=== PATIENT | male | born 1970 | race Caucasian/White ===

== ENCOUNTER → 2016-09-08 | Outpatient (REF) | payer OTHER ==
[2016-09-09 12:38] LABS: MEAN CORPUSCULAR HEMOGLOBIN 33.2 pg (27.0-33.0); MEAN CORPUSCULAR VOLUME 87.1 fl (80.0-96.0); RED CELL DISTRIBUTION WIDTH 12.8 % (11.5-14.5); WHITE BLOOD COUNT 6.7 K/mm3 (4.0-10.0)
[2016-09-09 12:55] LABS: ALBUMIN 3.9 GM/DL (3.2-5.2); ALBUMIN/GLOBULIN RATIO 1.05 (1.00-1.93); ALKALINE PHOSPHATASE 99 U/L (45-117); ANION GAP 11 MEQ/L (8-16); BILIRUBIN,TOTAL 0.5 MG/DL (0.2-1.0); BLOOD UREA NITROGEN 17 MG/DL (7-18); CALCIUM LEVEL 8.4 MG/DL (8.5-10.1); CARBON DIOXIDE LEVEL 25 MEQ/L (21-32); CHLORIDE LEVEL 101 MEQ/L (98-107); CHOLESTEROL LEVEL 240 MG/DL (<200); CREATININE FOR GFR 0.91 MG/DL (0.70-1.30); FREE T4 1.02 NG/DL (0.76-1.46); GLOMERULAR FILTRATION RATE > 60.0 (>60); GLUCOSE, FASTING 320 MG/DL (70-105); POTASSIUM SERUM 4.6 MEQ/L (3.5-5.1); SODIUM LEVEL 137 MEQ/L (136-145); TOTAL PROTEIN 7.6 GM/DL (6.4-8.2)
[2016-09-09 13:12] LABS: TRIGLYCERIDES LEVEL 2065 MG/DL (<150)
[2016-09-09 13:18] LABS: MEAN CORPUSCULAR HGB CONC 37.8 g/dl (32.0-36.5)
[2016-09-09 13:50] LABS: BANDS 2 % (< 11); EOSINOPHILS 3 % (0-5); PLATELET CLUMPS MODERATE AMT
[2016-09-09 14:09] LABS: ALT/SGPT 77 U/L (12-78); AST/SGOT 30 U/L (15-37)
== END ==
LOC: M SFHCLERA 14:27
PROVIDERS: ATTEND Family Medicine
DX: I10 Essential (primary) hypertension (principal); E11.65 Type 2 diabetes mellitus with hyperglycemia; F10.10 Alcohol abuse, uncomplicated; F17.290 Nicotine dependence, other tobacco product, uncomplicated

== ENCOUNTER → 2016-12-07 | Outpatient (REF) | payer OTHER | LOC: M SFHCLERA 09:26 | PROVIDERS: ATTEND Family Medicine | DX: E11.65 Type 2 diabetes mellitus with hyperglycemia (principal) ==

== ENCOUNTER → 2018-10-11 | Outpatient (CLI) | payer OTHER ==
--- NOTE | 2018-10-11 09:50 | REP ---
MRI right shoulder without contrast: History: Osteoarthritis. Technique: Axial, oblique coronal, and oblique sagittal imaging planes are utilized. T1 and T2-weighted scans were obtained in the usual fashion with and without fat saturation. MRI findings: There is normal alignment of the glenohumeral and acromioclavicular joints. There is severe osteoarthritis of the glenohumeral articulation with exuberant osteophyte formation and severe chondromalacia on both sides of the joint, most severe on the glenoid side. There is a small quantity of joint fluid. There is moderate osteoarthritis in the AC joint as well. AC joint fluid is seen with minimal marrow edema. There is inferior and some superior hypertrophy. A small sliver of subacromial subdeltoid bursal effusion is seen. There is advanced tendonitis tendinosis change in the distal supraspinatus tendon posteriorly and distally. No fluid signal intensity T2 lesion is seen to suggest a full-thickness cuff tear. The biceps tendon appears intact. There is tendinosis in the subscapularis tendon without focal disruption. Infraspinatus tendon is unremarkable. There is considerable irregularity consistent with fraying of the anterior and posterior labral cartilages. There is mild marrow edema in the inferior and posterior glenoid labrum. Impression: Advanced glenohumeral and moderate acromioclavicular osteoarthritis. Severe chondromalacia in the glenohumeral articulation. Advanced tendinosis in the supraspinatus and mild tendinosis in the subscapularis tendons. Large inferior humeral osteoarthritic spurring. Unreviewed
== END ==
LOC: M RAD 07:21
PROVIDERS: ATTEND Physician Assistant
DX: M19.90 Unspecified osteoarthritis, unspecified site (principal)

== ENCOUNTER → 2019-08-26 | Outpatient (CLI) | payer OTHER ==
[2019-08-26 10:00] LABS: BASO % 0.6 % (0.0-1.0); EOS # 0.1 10^3/uL (0.0-0.5); EOS % 2.1 % (0.0-3.0); HEMATOCRIT 47.8 % (42.0-52.0); HEMOGLOBIN 14.7 g/dl (13.5-17.5); LYMPH # 1.8 10^3/uL (1.5-5.0); MEAN CORPUSCULAR HEMOGLOBIN 28.3 pg (27.0-33.0); MEAN CORPUSCULAR HGB CONC 30.8 g/dl (32.0-36.5); MEAN CORPUSCULAR VOLUME 92.1 fl (80.0-96.0); MONO # 0.5 10^3/uL (0.0-0.8); MONO % 9.8 % (0.0-5.0); NEUTROPHILS # 2.3 10^3/uL (1.5-8.5); NEUTROPHILS % 49.3 % (36.0-66.0); PLATELET COUNT, AUTOMATED 171 10^3/uL (150-450); RED BLOOD COUNT 5.19 10^6/uL (4.30-6.10); WHITE BLOOD COUNT 4.7 10^3/uL (4.0-10.0)
[2019-08-26 10:35] LABS: HEMOGLOBIN A1c 7.1 %
[2019-08-26 10:36] LABS: ALBUMIN 4.1 GM/DL (3.2-5.2); ALT/SGPT 59 U/L (12-78); BILIRUBIN,TOTAL 0.6 MG/DL (0.2-1.0); BLOOD UREA NITROGEN 13 MG/DL (7-18); CALCIUM LEVEL 9.3 MG/DL (8.5-10.1); CARBON DIOXIDE LEVEL 24 MEQ/L (21-32); CHLORIDE LEVEL 110 MEQ/L (98-107); CHOLESTEROL LEVEL 137 MG/DL (<200); CHOLESTEROL RISK RATIO 4.724 (<5); CREATININE FOR GFR 0.75 MG/DL (0.70-1.30); GLOMERULAR FILTRATION RATE > 60.0 (>60); GLUCOSE, FASTING 115 MG/DL (70-100); HDL CHOLESTEROL 29 MG/DL (>40); LDL CHOLESTEROL 78 MG/DL (<100); NON-HDL-C 108 MG/DL; POTASSIUM SERUM 4.3 MEQ/L (3.5-5.1); SODIUM LEVEL 142 MEQ/L (136-145); THYROID STIMULATING HORMONE 0.667 uIU/ML (0.358-3.740); TOTAL PROTEIN 7.2 GM/DL (6.4-8.2); TRIGLYCERIDES LEVEL 148 MG/DL (<150)
== END ==
LOC: M LAB 08:56
PROVIDERS: ATTEND Nurse Practitioner Adult Health
DX: E78.00 Pure hypercholesterolemia, unspecified (principal); E11.65 Type 2 diabetes mellitus with hyperglycemia; Z79.899 Other long term (current) drug therapy

== ENCOUNTER → 2019-08-26 | Outpatient (CLI) | payer OTHER ==
[2019-08-26 09:54] LABS: HEMATOCRIT 47.7 % (42.0-52.0)
[2019-08-26 10:00] LABS: BASO % 0.6 % (0.0-1.0); EOS # 0.1 10^3/uL (0.0-0.5); EOS % 2.4 % (0.0-3.0); HEMATOCRIT 45.6 % (42.0-52.0); HEMOGLOBIN 14.6 g/dl (13.5-17.5); LYMPH # 1.8 10^3/uL (1.5-5.0); MEAN CORPUSCULAR HEMOGLOBIN 29.2 pg (27.0-33.0); MEAN CORPUSCULAR VOLUME 91.2 fl (80.0-96.0); MONO # 0.4 10^3/uL (0.0-0.8); MONO % 9.2 % (0.0-5.0); NEUTROPHILS # 2.3 10^3/uL (1.5-8.5); NEUTROPHILS % 48.6 % (36.0-66.0); PLATELET COUNT, AUTOMATED 171 10^3/uL (150-450); WHITE BLOOD COUNT 4.7 10^3/uL (4.0-10.0)
[2019-08-26 10:26] LABS: ALT/SGPT 61 U/L (12-78); BILIRUBIN,TOTAL 0.6 MG/DL (0.2-1.0); BLOOD UREA NITROGEN 13 MG/DL (7-18); CALCIUM LEVEL 9.4 MG/DL (8.5-10.1); CARBON DIOXIDE LEVEL 23 MEQ/L (21-32); CHLORIDE LEVEL 111 MEQ/L (98-107); FERRITIN 521 NG/ML (26-388); GLOMERULAR FILTRATION RATE > 60.0 (>60); GLUCOSE, FASTING 119 MG/DL (70-100); IRON (FE) 116 UG/DL (65-175); MAGNESIUM LEVEL 2.1 MG/DL (1.8-2.4); PERCENT SATURATION 34.7 % (19.7-50.0); PHOSPHORUS LEVEL 3.5 MG/DL (2.5-4.9); POTASSIUM SERUM 4.3 MEQ/L (3.5-5.1); SODIUM LEVEL 143 MEQ/L (136-145); TOTAL IRON BINDING CAPACITY 334 UG/DL (250-450); TOTAL PROTEIN 7.1 GM/DL (6.4-8.2)
[2019-08-26 10:32] LABS: TOTAL 25(OH) VITAMIN D 27.5 NG/ML (30.0-100.0)
[2019-08-26 10:33] LABS: VITAMIN B12 LEVEL 442 PG/ML (247-911)
[2019-08-26 10:35] LABS: HEMOGLOBIN A1c 6.9 %
== END ==
LOC: M LAB 09:01
PROVIDERS: ATTEND Surgery
DX: K91.2 Postsurgical malabsorption, not elsewhere classified (principal); E55.9 Vitamin D deficiency, unspecified; Z98.84 Bariatric surgery status

== ENCOUNTER → 2019-09-16 | Outpatient (REF) | payer OTHER | LOC: M SFHCLERA 09:34 | PROVIDERS: ATTEND Physician Assistant | DX: R30.0 Dysuria (principal) ==

== ENCOUNTER → 2019-10-02 | Outpatient (REF) | payer OTHER | LOC: M SFHCLERA 18:15 | PROVIDERS: ATTEND Physician Assistant | DX: N30.01 Acute cystitis with hematuria (principal) ==

== ENCOUNTER → 2019-12-23 | Outpatient (CLI) | payer OTHER ==
--- NOTE | 2019-12-23 23:06 | REP ---
RIGHT LOWER LEG, AP AND LATERAL: TIBIA/FIBULA: There is no evidence of an acute fracture, dislocation, or intrinsic bone disease. IMPRESSION: No fracture or dislocation. Electronically Signed by Dominick Isaacs MD 12/24/2019 04:52 P
== END ==
LOC: M LRY 14:33
PROVIDERS: ATTEND Physician Assistant
DX: S89.91XA Unspecified injury of right lower leg, initial encounter (principal); X58.XXXA Exposure to other specified factors, initial encounter; Y92.9 Unspecified place or not applicable

== ENCOUNTER → 2020-01-06 | Outpatient (CLI) | payer OTHER ==
--- NOTE | 2019-10-18 13:10 | REP ---
Clinical: Urinary tract infection. Technique: Real time hanley scale and color evaluation using curved array transducer. Findings: The bilateral kidneys are normal in contour, size, echogenicity and reniform shape without hydronephrosis, cystic or renal mass lesion. No perinephric fluid collection. Right kidney measures 11.0 x 6.5 x 5.6 cm without nephrolithiasis. Left kidney measures 12.2 x 7.0 x 6.3 cm includes 5 mm nonobstructing midpole calculus. Bladder is unremarkable. Impression: Suspected 5 mm nonobstructing left renal calculus. Electronically Signed by Joshua Solorzano MD 10/18/2019 01:02 P
== END ==
LOC: M RAD 13:25
PROVIDERS: ATTEND Nurse Practitioner Adult Health
DX: R30.0 Dysuria (principal); N39.0 Urinary tract infection, site not specified; Z98.84 Bariatric surgery status

== ENCOUNTER → 2020-01-30 | Outpatient (CLI) | payer OTHER ==
--- NOTE | 2020-01-30 19:02 | REP ---
Clinical: Neck pain, thoracic back pain, and lower back pain. Technique: AP, lateral, open mouth views of the cervical spine; AP, lateral, swimmers views of the thoracic spine; AP, lateral, coned-down views of the lumbosacral spine. Findings: Cervical spine demonstrates normal alignment and lordosis. Early advanced multilevel degenerative changes include endplate sclerosis, disc space narrowing, and osteophytosis primarily involving C4-5 through C6-7. No acute fracture / compression injury or subluxation. Open mouth view demonstrates normal C1-C2 articulation and odontoid process. Thoracic spine demonstrates mild dextroconvex scoliosis. Alignment and kyphosis otherwise maintained. No acute fracture / compression injury or subluxation. Multilevel marginal spurring noted. Disc spaces are relatively maintained and age appropriate. Lumbosacral spine demonstrate satisfactory alignment and lordosis. Early advanced multilevel degenerative changes include endplate sclerosis, disc space narrowing, marginal osteophytosis and hypertrophic facet changes. Findings most pronounced at the L5-S1 level and associated chronic spondylolysis cannot be excluded. Impression: 1. Moderate to advanced multilevel degenerative spondylosis as described above. Electronically Signed by Joshua Solorzano MD 01/30/2020 06:53 P
== END ==
LOC: M LRY 09:08
PROVIDERS: ATTEND Nurse Practitioner Adult Health
DX: M54.2 Cervicalgia (principal); M54.5 Low back pain; M54.6 Pain in thoracic spine

== ENCOUNTER → 2020-03-13 | Outpatient (CLI) | payer OTHER ==
--- NOTE | 2020-03-13 11:35 | REP ---
KUB ABDOMEN AND PELVIS: KUB film of the abdomen and pelvis performed. There is a 2-3 mm calcification overlying the upper pole of the left kidney. No other definite renal calcifications are seen. There are vascular calcifications in the pelvis. . Bowel gas pattern is normal. There are mild degenerative changes of the spine. There are mild degenerative change of the hips. IMPRESSION: There is a calcification overlying the upper pole of the left kidney 2-3 mm in diameter. Electronically Signed by Dominick Isaacs MD 03/15/2020 11:07 P
== END ==
LOC: M LRY 09:39
PROVIDERS: ATTEND Urology
DX: N30.00 Acute cystitis without hematuria (principal); N20.0 Calculus of kidney

== ENCOUNTER → 2020-04-27 | Outpatient (CLI) | payer OTHER ==
--- NOTE | 2020-05-29 07:00 | REP ---
ABDOMINAL RADIOGRAPHS CLINICAL: Abdominal pain with hematuria. TECHNIQUE: Two supine views of the abdomen and pelvis. COMPARISON: 03/13/2020. FINDINGS: The bowel gas pattern is nonspecific. Evaluation for urinary tract calcifications is limited due to technique and overlying bowel gas. No obvious definite urinary tract calcifications are identifiable. Skeletal structures demonstrate stable age-related changes. IMPRESSION: Nonspecific abdominal radiograph. Cannot exclude urinary tract calcifications. MTDD
== END ==
LOC: M LRY 10:21
PROVIDERS: ATTEND Physician Assistant
DX: R10.30 Lower abdominal pain, unspecified (principal); R31.9 Hematuria, unspecified; Z87.442 Personal history of urinary calculi

== ENCOUNTER → 2020-05-20 | Outpatient (CLI) | payer OTHER ==
[2020-05-20 08:35] LABS: BASO % 0.7 % (0.0-1.0); EOS # 0.1 10^3/uL (0.0-0.5); EOS % 2.2 % (0.0-3.0); HEMATOCRIT 42.2 % (42.0-52.0); HEMOGLOBIN 13.3 g/dl (13.5-17.5); LYMPH # 2.3 10^3/uL (1.5-5.0); LYMPH % 38.7 % (24.0-44.0); MEAN CORPUSCULAR HEMOGLOBIN 29.2 pg (27.0-33.0); MEAN CORPUSCULAR HGB CONC 31.5 g/dl (32.0-36.5); MEAN CORPUSCULAR VOLUME 92.5 fl (80.0-96.0); MONO # 0.6 10^3/uL (0.0-0.8); MONO % 9.8 % (0.0-5.0); NEUTROPHILS # 2.9 10^3/uL (1.5-8.5); NEUTROPHILS % 48.4 % (36.0-66.0); PLATELET COUNT, AUTOMATED 181 10^3/uL (150-450); RED BLOOD COUNT 4.56 10^6/uL (4.30-6.10); WHITE BLOOD COUNT 5.9 10^3/uL (4.0-10.0)
[2020-05-20 08:55] LABS: HEMATOCRIT 42.2 % (42.0-52.0)
[2020-05-20 08:59] LABS: ALBUMIN 3.7 GM/DL (3.2-5.2); ALT/SGPT 36 U/L (12-78); BILIRUBIN,TOTAL 0.6 MG/DL (0.2-1.0); BLOOD UREA NITROGEN 13 MG/DL (7-18); CALCIUM LEVEL 9.3 MG/DL (8.5-10.1); CARBON DIOXIDE LEVEL 29 MEQ/L (21-32); CHLORIDE LEVEL 107 MEQ/L (98-107); CREATININE FOR GFR 0.87 MG/DL (0.70-1.30); FERRITIN 367 NG/ML (26-388); GLOMERULAR FILTRATION RATE > 60.0 (>60); GLUCOSE, FASTING 118 MG/DL (70-100); IRON (FE) 107 UG/DL (65-175); MAGNESIUM LEVEL 2.1 MG/DL (1.8-2.4); PERCENT SATURATION 37.7 % (19.7-50.0); PHOSPHORUS LEVEL 3.5 MG/DL (2.5-4.9); POTASSIUM SERUM 4.2 MEQ/L (3.5-5.1); SODIUM LEVEL 142 MEQ/L (136-145); TOTAL IRON BINDING CAPACITY 284 UG/DL (250-450); TOTAL PROTEIN 6.8 GM/DL (6.4-8.2)
[2020-05-20 09:21] LABS: TOTAL 25(OH) VITAMIN D 91.1 NG/ML (30.0-100.0)
[2020-05-20 09:22] LABS: VITAMIN B12 LEVEL 757 PG/ML (247-911)
[2020-05-20 09:49] LABS: HEMOGLOBIN A1c 5.8 %
== END ==
LOC: M LAB 07:46
PROVIDERS: ATTEND Physician Assistant
DX: K21.9 Gastro-esophageal reflux disease without esophagitis (principal); E55.9 Vitamin D deficiency, unspecified; Z98.84 Bariatric surgery status; Z86.39 Personal history of other endocrine, nutritional and metabolic disease

== ENCOUNTER → 2020-10-26 | Outpatient (CLI) | payer OTHER ==
[2020-10-26 10:46] LABS: HEMATOCRIT 44.8 % (42.0-52.0)
[2020-10-26 10:48] LABS: BASO % 0.8 % (0.0-1.0); EOS # 0.1 10^3/uL (0.0-0.5); EOS % 1.6 % (0.0-3.0); HEMATOCRIT 45.1 % (42.0-52.0); HEMOGLOBIN 14.2 g/dl (13.5-17.5); LYMPH # 1.9 10^3/uL (1.5-5.0); LYMPH % 38.1 % (24.0-44.0); MEAN CORPUSCULAR HEMOGLOBIN 29.2 pg (27.0-33.0); MEAN CORPUSCULAR HGB CONC 31.5 g/dl (32.0-36.5); MEAN CORPUSCULAR VOLUME 92.8 fl (80.0-96.0); MONO # 0.4 10^3/uL (0.0-0.8); MONO % 8.1 % (2.0-8.0); NEUTROPHILS # 2.6 10^3/uL (1.5-8.5); NEUTROPHILS % 51.2 % (36.0-66.0); PLATELET COUNT, AUTOMATED 185 10^3/uL (150-450); RED BLOOD COUNT 4.86 10^6/uL (4.30-6.10); WHITE BLOOD COUNT 5.1 10^3/uL (4.0-10.0)
[2020-10-26 11:09] LABS: HEMOGLOBIN A1c 5.5 %
[2020-10-26 11:44] LABS: ALBUMIN 4.3 GM/DL (3.2-5.2); ALT/SGPT 40 U/L (12-78); BILIRUBIN,TOTAL 0.6 MG/DL (0.2-1.0); BLOOD UREA NITROGEN 13 MG/DL (7-18); CALCIUM LEVEL 9.4 MG/DL (8.5-10.1); CARBON DIOXIDE LEVEL 27 MEQ/L (21-32); CHLORIDE LEVEL 108 MEQ/L (98-107); CREATININE FOR GFR 0.72 MG/DL (0.70-1.30); FERRITIN 297 NG/ML (26-388); GLOMERULAR FILTRATION RATE > 60.0 (>60); GLUCOSE, FASTING 78 MG/DL (70-100); IRON (FE) 104 UG/DL (65-175); MAGNESIUM LEVEL 2.2 MG/DL (1.8-2.4); PERCENT SATURATION 31.6 % (19.7-50.0); PHOSPHORUS LEVEL 3.7 MG/DL (2.5-4.9); POTASSIUM SERUM 4.8 MEQ/L (3.5-5.1); SODIUM LEVEL 141 MEQ/L (136-145); TOTAL 25(OH) VITAMIN D 38.5 NG/ML (30.0-100.0); TOTAL IRON BINDING CAPACITY 329 UG/DL (250-450); TOTAL PROTEIN 7.5 GM/DL (6.4-8.2); VITAMIN B12 LEVEL 821 PG/ML (247-911)
== END ==
LOC: M LAB 09:15
PROVIDERS: ATTEND Physician Assistant
DX: K91.2 Postsurgical malabsorption, not elsewhere classified (principal)

== ENCOUNTER → 2020-11-23 | Outpatient (CLI) | payer OTHER ==
--- NOTE | 2020-11-23 08:03 | REP ---
INDICATION: KIDNEY STONES. COMPARISON: Supine abdomen dated 04/27/2020. TECHNIQUE: Abdomen/pelvis CT without IV or bowel contrast. FINDINGS: There is an 18 x 10 mm left renal calculus in the left renal pelvis. No left ureteral calculi are identified. However, there is mild left hydronephrosis and mild left ureteral dilatation. This could be from a recently passed left ureteral calculus. There is no left perinephric stranding. There is a nonobstructive 6 mm right renal calculus. There is no right renal hydronephrosis or hydroureter. There is no left renal perinephric stranding. The visualized lung means are unremarkable. The unenhanced hepatic parenchyma, gallbladder, pancreas and spleen are unremarkable. There are surgical suture lines in the upper abdomen suggestive of bariatric surgery. There is no gastric distention. The adrenals are unremarkable. The abdominal aorta is unremarkable. There is no periaortic adenopathy or mass. The bowel is unremarkable except for occasional diverticula in the descending colon without CT evidence of diverticulitis. There is no appendicoliths. The appendix is otherwise unremarkable. The mesentery is unremarkable. Pelvis: The bladder is unremarkable. There is no adenopathy or ascites. There are bilateral L5 pars interarticularis defects, degenerative disc disease at L5-S1 and minimal grade 1 anterolisthesis of L5. IMPRESSION: Bilateral nonobstructive renal calculi as described. No ureteral calculi or bladder calculi. Mild left hydronephrosis and left ureteral dilatation, possibly from a recently passed calculus. No hydronephrosis or hydroureter on the left. No perinephric stranding on the right or the left. Occasional descending colon diverticula without diverticulitis. Appendicolith. Bilateral L5 pars interarticularis defects with minimal grade 1 anterolisthesis of L5 and L5-S1 degenerative disc disease. <Electronically signed by Dominick Bowman > 11/23/20 [id number]
== END ==
LOC: M RAD 07:15
PROVIDERS: ATTEND Nurse Practitioner Family
DX: N20.0 Calculus of kidney (principal); M51.37 Other intervertebral disc degeneration, lumbosacral region

== ENCOUNTER → 2020-12-24 | Outpatient (CLI) | payer OTHER ==
--- NOTE | 2020-12-24 08:45 | REP ---
INDICATION: CALCULUS OF KIDNEY. COMPARISON: No comparison study. TECHNIQUE: Two views.. FINDINGS: The lungs are well inflated and free of infiltrate. The pleural angles are sharp. The heart size is normal. Pulmonary vasculature is not increased. No significant bony abnormality is seen. 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 IMPRESSION: No active disease.. <Electronically signed by Yvan Moreno > 12/24/20 [id number]
== END ==
LOC: M RAD 08:20
PROVIDERS: ATTEND Nurse Practitioner Family
DX: N20.0 Calculus of kidney (principal)

== ENCOUNTER → 2020-12-30 | Outpatient (CLI) | payer OTHER ==
[~2020-12-30] MED LIST: CYAN500T14 PO; EZET10TA21 PO; LOPI600T PO; OYST1TAB PO; VITMTA PO
== END ==
LOC: M LABSMTC 09:37
PROVIDERS: ATTEND Anesthesiology
DX: Z01.818 Encounter for other preprocedural examination (principal); Z11.52 Encounter for screening for COVID-19

== ENCOUNTER 2021-01-04 07:09 | Day surgery (SDC) | payer OTHER ==
[~2021-01-04] VITALS: Ht 180.3 cm; Wt 91.2 kg
[~2021-01-04 07:09] MED LIST changes: +LR 1,000 ML IV SCH; +ceFAZolin SOD 2 GM in IV 1 EA IV SCH
[2021-01-04] MEDS ORDERED: CONRAY-60 60% 50ML VIAL (Q9961) As Ordered ONE (07:59)
[2021-01-04] MEDS ORDERED: propofoL 200 MG/20 ML VIAL As Ordered ONE (08:37)
[2021-01-04] MEDS ORDERED: fentaNYL 250 MCG/5 ML INJECTION (J3010) As Ordered ONE (08:37)
[2021-01-04] MEDS ORDERED: ONDANSETRON 4MG/2ML VIAL As Ordered ONE (08:37)
[2021-01-04] MEDS ORDERED: MIDAZOLAM INJ 2MG/2ML VIAL (J2250 PER 1MG) As Ordered ONE (08:37)
[2021-01-04] MEDS ORDERED: LIDOCAINE 2% 100MG/5ML SDV (FOR ANES.) As Ordered ONE (08:37)
[2021-01-04] MEDS ORDERED: dexameTHASONE 4 MG/ML 1ML VIAL (J1100 PER 1MG) As Ordered ONE (08:37)
[2021-01-04] MEDS ORDERED: ACETAMINOPHEN 1000MG 100ML IV BTL (OFIRMEV) (J0131 PER 10MG) As Ordered ONE (08:45)
[2021-01-04] MEDS ORDERED: fentaNYL 100 MCG/2 ML INJECTION (J3010) IV PRN (09:50)
[2021-01-04] MEDS ORDERED: PERCOCET 5MG/325MG TAB PO PRN ×2 (09:50)
[2021-01-04] MEDS ORDERED: METOCLOPRAMIDE INJ 10MG/2ML VIAL (J2765 PER 1) IV PRN (09:50)
[2021-01-04] MEDS ORDERED: LR 1,000 ML IV SCH (09:50)
[2021-01-04] MEDS ORDERED: ONDANSETRON 4MG/2ML VIAL IV PRN (09:50)
--- NOTE | 2021-01-04 10:04 | RO ---
OPERATIVE NOTE DATE OF OPERATION: 01/04/2021 PREOPERATIVE DIAGNOSIS: Left kidney stone. POSTOPERATIVE DIAGNOSIS: Left kidney stone. PROCEDURE: Cystoscopy, left ureteroscopy with laser lithotripsy and basket extraction of stone, left retrograde pyelogram with intraop interpretation of images, left ureteral stent placement. SURGEON: Randy Morales MD [employer]UBBER [employer] CHANGER: None. ANESTHESIA: General. OPERATIVE INDICATIONS: This is a 50-year-old male who was found to have an approximately 1.4 cm left renal pelvis stone. He was brought to the operating room today for treatment. DESCRIPTION OF PROCEDURE: The patient was brought to the operating room and general anesthesia was induced. Prophylactic antibiotics were infused. He was placed in dorsal lithotomy position and prepped and draped in usual sterile fashion. A rigid cystoscope was inserted in the urethral meatus and advanced into the bladder. A guidewire was advanced in the collecting system. I then advanced the ureteral access sheath up the left collecting system. I went up the access sheath with a flexible ureteroscope and in the left renal pelvis a 1.4 cm stone was seen. An [employer] laser fiber was utilized to fragment the stone into small fragments. All the larger fragments were removed using a basket. Any remaining fragments were then lasered until there was just stone debris left that should be easily passed. At this point a retrograde pyelogram was performed and was notable for mild left hydronephrosis, with no extravasation. I then withdrew the ureteroscope along with the access sheath and no additional stones were seen inside the ureter. I then utilized a guidewire to advance 6-[place] x 22-32 cm JJ ureteral stent up the left collecting system. The wire was removed and there was adequate curls of the stent in left renal pelvis and bladder. The bladder was emptied of all fluids and this marked the conclusion of the procedure. The patient was taken out of the dorsal lithotomy position, awakened from anesthesia, and transported to the recovery room in stable condition. ESTIMATED BLOOD LOSS: 5 mL. COMPLICATIONS: None. SPECIMEN: Kidney stone fragments. PLAN: The patient will follow up in the urology clinic in a few weeks with imaging prior to assess for residual stone burden. Assuming no additional stone fragments are seen the stent will be removed. [facility] SYSTEM[facility]
[2021-01-04 10:10] VITALS: BP 138/80
--- NOTE | 2021-01-04 16:36 | REP ---
INDICATION: LEFT STENT PLACEMENT. COMPARISON: None. TECHNIQUE: Two C-arm views abdomen and pelvis. FINDINGS: Contrast partially opacifies the left pelvocaliceal system. A left ureteral stent is placed, the proximal end is coiled in the left renal pelvis and the distal end in the urinary bladder. IMPRESSION: 9 seconds of fluoroscopy time was utilized. <Electronically signed by Dominick Isaacs > 01/04/21 [id number]
== END 2021-01-04 10:27 | disposition home or self-care (01) ==
LOC: M SDC 07:09
PROVIDERS: ATTEND Urology
DX: N20.0 Calculus of kidney (principal); N13.39 Other hydronephrosis; E78.00 Pure hypercholesterolemia, unspecified; E11.9 Type 2 diabetes mellitus without complications; I10 Essential (primary) hypertension; M19.90 Unspecified osteoarthritis, unspecified site; Z87.440 Personal history of urinary (tract) infections; F17.210 Nicotine dependence, cigarettes, uncomplicated; Z79.899 Other long term (current) drug therapy; Z98.84 Bariatric surgery status
CPT/HCPCS: 52356; 74420; 82365; 88300; C1769; C1894; C2617; J0131; J0690; J1100; J2250; J2405; J3010; Q9961

== ENCOUNTER → 2021-01-15 | Outpatient (CLI) | payer OTHER ==
[~2021-01-15] MED LIST changes: -LR 1,000 ML IV SCH; -ceFAZolin SOD 2 GM in IV 1 EA IV SCH
--- NOTE | 2021-01-15 09:21 | REP ---
INDICATION: CALCULUS OF KIDNEY COMPARISON: None. TECHNIQUE: Supine view of the abdomen and pelvis. FINDINGS: A left ureteral stent is identified in satisfactory position. Left intrarenal calculus measuring up to 6 mm suggested. Further evaluation of the urinary tract system is limited due to overlying bowel gas. Nonspecific bowel gas pattern. No obvious organomegaly. Skeletal structures intact. IMPRESSION: Left renal calculi. Left ureteral stent in satisfactory position. Further urinary tract calcifications cannot be excluded. <Electronically signed by Joshua Solorzano > 01/15/21 [id number]
== END ==
LOC: M RAD 09:02
PROVIDERS: ATTEND Urology
DX: N20.0 Calculus of kidney (principal)

== ENCOUNTER → 2021-07-19 | Outpatient (CLI) | payer OTHER ==
--- NOTE | 2021-07-19 13:07 | REP ---
INDICATION: CALCULUS OF KIDNEY. COMPARISON: 01/15/2021 FINDINGS: KUB shows the intestinal gas pattern to be nonspecific. The organ silhouettes insofar as delineated are unremarkable. There is no evidence of free intraperitoneal air. Since the last examination the double pigtail stent on the left has been removed. The calcifications seen previously superimposed over the left nephric silhouette is no longer present. No new calcifications have developed. Vas deferens calcifications are seen bilaterally status quo. IMPRESSION: As above <Electronically signed by Ventura Adame > 07/19/21 [id number]
== END ==
LOC: M RAD 12:53
PROVIDERS: ATTEND Urology
DX: N20.0 Calculus of kidney (principal)

== ENCOUNTER → 2022-08-31 | Outpatient (CLI) | payer OTHER ==
[~2022-08-31] MED LIST changes: +GASTROGRAFIN SOLUTION 30ML As Ordered ONE; +ISOVUE-370 76% 100ML VIAL As Ordered ONE
== END ==
LOC: M RAD 14:58
PROVIDERS: ATTEND Nurse Practitioner Family
DX: R10.32 Left lower quadrant pain (principal)

== ENCOUNTER → 2024-07-20 | Outpatient (CLI) | payer OTHER ==
[~2024-07-20] MED LIST changes: -GASTROGRAFIN SOLUTION 30ML As Ordered ONE; -ISOVUE-370 76% 100ML VIAL As Ordered ONE
== END ==
LOC: M LAB 09:35 → M RAD 09:35
PROVIDERS: ATTEND Student in an Organized Health Care Education/Training Program
DX: M17.12 Unilateral primary osteoarthritis, left knee (principal)